=== PATIENT | female | born 1990 | race American Indian/Alaskan Native ===

== ENCOUNTER 2016-11-30 06:49 | Emergency (ER) | payer MEDICARE ==
--- NOTE | 2016-11-30 07:44 | Emergency Department Report ---
HPI - General Chief Complaint: Upper Respiratory Infection Time Seen by Provider: 11/30/16 07:36 - HPI HPI: Patient is a 26-year-old female who presents to ED complaining of fever bodyaches and cough 4 days. Patient states 4 days ago she began experiencing chills and fever. Patient states cough began about 2 days ago. Patient states cough is dry nonproductive. Patient states one episode of vomiting earlier today. Patient states she feels sick and is not able tolerate fluids or food since 2 days ago. ED Past Medical Hx - Past Medical History Hx Congestive Heart Failure: No Hx Diabetes: No Hx Asthma: Yes Hx COPD: No - Surgical History Past Surgical History?: No - Social History Smoking Status: Current Every Day Smoker Substance Use Type: None - Medications Home Medications: Home Medications Medication Instructions Recorded Confirmed Last Taken Type Vit #108/Iron/FA 1 tab PO DAILY 05/27/14 05/27/14 05/26/14 08:00 History [ One Tablet] 1 Ferrous Sulfate [Feosol 325 MG tab] 325 mg PO BID #60 tablet 05/28/14 Unknown Rx Vit-Fe Fumar-FA [ 1 each PO QDAY #30 tablet 05/28/14 Unknown Rx Vitamin] Amoxicillin/K Clav Tab [Augmentin 1 each PO Q12HR #20 tablet 11/30/16 Unknown Rx 500 MG TAB] Fluconazole [Diflucan TAB] 200 mg PO QDAY #2 tablet 11/30/16 Unknown Rx Ibuprofen [Motrin 600 MG tab] 600 mg PO Q6HR #30 tablet 11/30/16 Unknown Rx ED Review of Systems ROS: Stated complaint: FLU LIKE SYMPTOMS Other details as noted in HPI Constitutional: denies: chills, fever Eyes: denies: eye pain, eye discharge, vision change ENT: denies: ear pain, throat pain, dental pain, hearing loss, congestion Respiratory: cough. denies: shortness of breath, SOB with exertion, SOB at rest , wheezing Cardiovascular: denies: chest pain, palpitations Endocrine: no symptoms reported Gastrointestinal: vomiting. denies: abdominal pain, nausea, diarrhea, constipation, melena Genitourinary: denies: urgency, dysuria, discharge Musculoskeletal: denies: back pain, joint swelling, arthralgia Skin: denies: rash, lesions, pruritus Neurological: denies: headache, weakness, numbness, paresthesias, confusion Psychiatric: denies: anxiety, depression, auditory hallucinations Hematological/Lymphatic: denies: easy bleeding, easy bruising Physical Exam - Physical Exam Vital Signs: Vital Signs 11/30/16 07:11 Temperature 101.9 F H Pulse Rate 122 H Respiratory 20 Rate Blood Pressure 103/68 O2 Sat by Pulse 97 Oximetry Physical Exam: GENERAL: Alert and oriented x3, no apparent distress, Normal Gait, atraumatic. HEAD: Head is normocephalic and a-traumatic. EYES: Extra ocular muscles are intact. Pupils are equal, round, and reactive to light and accommodation. EARS: symetrical, atraumatic, non tender, gross auditory nml bilaterally. NOSE: Nose symetrical, Nontender,Nares appeared normal. MOUTH:Mouth is well hydrated and without lesions. Tonsils nonerythematous or swollen, Uvula midline, Tongue not elevated. Mucous membranes are moist. Posterior pharynx clear, no exudate or lesions. Patent airways. NECK: Supple. Non edematous, No carotid bruits. No lymphadenopathy or thyromegaly. LUNGS: Symetrical with respiration, No wheezing, no rales or crackles, CTAB. HEART: S1, S2 present, regular rate and rhythm without murmur, no rubs, no gallops. ABDOMEN: No organomegaly was noted,Positive bowel sounds, soft, and non- distended. . Nontender to palpation on all Quadrants, NO CVA tenderness. BREAST: Symetrical, Supple bilaterally, No Masses, lumps, lesions, ulcerations. EXTREMITIES/MUSCULOSKELETAL: No cyanosis, clubbing, rash, lesions or edema. Full ROM bilaterally. UE/LE Pulses 2+ bilaterally. LE and UE 5+ strength bilaterally NEUROLOGIC: No focal Deficit, Cranial nerves II through XII are grossly intact. No loss of sensation, PSYCHIATRIC: Mood is congruent with affect, denies suicidal or homicidal ideations. SKIN: Warm and dry, No lesions, No ulceration or induration present. ED Course Vital Signs 11/30/16 07:11 Temperature 101.9 F H Pulse Rate 122 H Respiratory 20 Rate Blood Pressure 103/68 O2 Sat by Pulse 97 Oximetry ED Medical Decision Making - Lab Data Result diagrams: 11/30/16 08:32 11/30/16 08:32 - Medical Decision Making 26-year-old female presents with a UTI and La vaginitis. ED course: CBC, CMP, UA, chest x-ray ordered. 1. CBC shows mild leukocytosis. 2. CMP shows low sodium and low potassium and high glucose but within normal limits 3. UA shows elevated white blood count. Positive bacteria. Positive yeast 4. Chest x-ray shows normal cardio silhouette, no consolidation or pneumothorax or pleural effusion or acute cardiopulmonary findings. Normal chest x-ray 5. Patient received 1 L of normal saline. Vital signs are stable. Patient is in no acute motor or sensory distress. 6. Patient given 250 mg of Rocephin and 1 g azithromycin for empiric treatment for pyelonephritis /STD. Discussed all results with patient. Discussed patient to be discharged home with antibiotics and Diflucan for UTI and yeast infection. Discussed with patient to increase hydration. Discussed the patient will follow up with primary care physician Critical care attestation.: If time is entered above; I have spent that time in minutes in the direct care of this critically ill patient, excluding procedure time. ED Disposition Clinical Impression: Candidal vulvovaginitis, Pyelonephritis UTI (urinary tract infection) Qualifiers: Urinary tract infection type: acute cystitis Hematuria presence: with hematuria Qualified Code(s): N30.01 - Acute cystitis with hematuria Disposition: DISCHARGED TO HOME OR SELFCARE Is pt being admited?: No Does the pt Need Aspirin: No Condition: Stable Instructions: Urinary Tract Infection in Women (ED), Vulvovaginal Candidiasis ( ED), Acute Pyelonephritis (ED) Prescriptions: Amoxicillin/K Clav Tab [Augmentin 500 MG TAB] 1 each PO Q12HR #20 tablet Fluconazole [Diflucan TAB] 200 mg PO QDAY #2 tablet Ibuprofen [Motrin 600 MG tab] 600 mg PO Q6HR #30 tablet Referrals: PRIMARY CARE, [Primary Care Provider] - 3-5 Days [facility] [Outside] - 3-5 Days [facility] [Outside] - 3-5 Days [facility] [Outside] - 3-5 Days Forms: Work/School Release Form(ED) Time of Disposition: 10:47
[2016-11-30] MEDS ORDERED: NACL 0.9% 1000 ML 1,000 ML IV ONE (08:20)
[2016-11-30 08:49] LABS: Hematocrit 34.4 % (30.3-42.9); Hemoglobin 11.3 gm/dl (10.1-14.3); Mean Corpuscular HGB Conc 33 % (30-34); Mean Corpuscular Hemoglobin 27 pg (28-32); Mean Corpuscular Volume 83 fl (79-97); Platelet Count 331 K/mm3 (140-440); Red Blood Count 4.14 M/mm3 (3.65-5.03); Red Cell Distribution Width 14.5 % (13.2-15.2); White Blood Count 12.7 K/mm3 (4.5-11.0)
[2016-11-30 09:03] LABS: Bacteria,Urine 4+ /HPF (Negative); Bilirubin,Urine NEG (Negative); Blood,Urine SM (Negative); Ketones,Urine NEG (Negative); Leukocyte Esterase,Urine LG (Negative); Mucus,Urine FEW /HPF; Nitrite,Urine POS (Negative)
[2016-11-30 09:04] LABS: WBC,Urine > 182.0 /HPF (0.0-6.0)
[2016-11-30] MEDS ORDERED: TORADOL IV ONE (09:24)
[2016-11-30 09:27] LABS: Alanine Aminotransferase 30 units/L (7-56); Albumin 3.8 g/dL (3.9-5); Alkaline Phosphatase 168 units/L (35-129); Anion Gap 20 mmol/L; BUN/Creatinine Ratio 8.57; Blood Urea Nitrogen 6 mg/dL (7-17); Calcium 8.8 mg/dL (8.4-10.2); Carbon Dioxide 22 mmol/L (22-30); Chloride 96.9 mmol/L (98-107); Glucose 109 mg/dL (65-100); Potassium 3.3 mmol/L (3.6-5.0); Sodium 136 mmol/L (137-145); Total Protein 7.7 g/dL (6.3-8.2)
[2016-11-30 09:47] VITALS: BP 108/67
--- NOTE | 2016-11-30 09:56 | XRay Report ---
Chest 2 views: History: Fever and cough. Findings: Normal cardiomediastinal silhouette. Trachea is midline. No consolidation, pneumothorax or pleural effusion. Impression: No acute cardiopulmonary findings.
[2016-11-30] MEDS ORDERED: XYLOCAINE 1% MPF 5 mL INFILTRATI ONE (10:12)
[2016-11-30] MEDS ORDERED: ROCEPHIN 250 MG in NACL 0.9% 50 ML IV ONE ×2 (10:13→11:00)
[2016-11-30] MEDS ORDERED: ZITHROMAX PO ONE (10:13)
[2016-11-30] MEDS ORDERED: ROCEPHIN/NS 1 GM/50 ML 1 GM/50 ML BAG IV ONE (10:22)
[2016-11-30 10:40] LABS: Blastocytes % (Manual) 0 %
[2016-11-30 10:41] LABS: Basophils % (Manual) 0 % (0.0-1.8)
[2016-11-30 10:42] LABS: Anisocytosis 1+; Diff Status Complete; Platelet Estimate Consistent w Auto
== END 2016-11-30 11:15 | disposition home or self-care (01) ==
LOC: ED 06:49
DX: B37.3 Candidiasis of vulva and vagina (principal); N12 Tubulo-interstitial nephritis, not specified as acute or chronic; N30.01 Acute cystitis with hematuria; J45.909 Unspecified asthma, uncomplicated; F17.200 Nicotine dependence, unspecified, uncomplicated
CPT/HCPCS: 36415; 71020; 80053; 81001; 84703; 85007; 85025; 87116; 87400; 87430; 96361; 96365; 96375; 99284; J0696; J1885; J7030